=== PATIENT | male | born 1985 | race Caucasian/White ===

== ENCOUNTER 2023-10-04 08:27 | Outpatient (AMB) | payer OTHER, SELFPAY ==
--- NOTE | 2023-10-04 08:30 | A.OFFVIS_ITS ---
Intake VS Expanded 10/04/23 08:32 10/04/23 08:43 Height 6 ft 1 in 6 ft 1 in Weight 285 lb 4.45 oz 285 lb BMI 37.6 37.6 Intake Visit Reasons: T2DM HPI Nutrition Presentation Details Pt presents for MNT for T2DM with hyperglycemia. The Pt was referred by Dr. Graham. A1c at 9.0 % on 09/2023- newly dx On metformin 500 mg twice day Does not have a glucometer as of yet Pt reports working on increasing water, and reducing on sugars coffee 2-3/x/day , 12 oz cups 6:30 B: 1 egg, 1 slice of [place], 1 slic ed on [place] muffin creamer /sugar coffee 12 oz snack : banana 12: [place] yogurt/granola or peanut butte r sandwich or a granola bar ,water 4pm : protein/veg/starch , water evenings snacks: ice cream, or p.b sand started exercise routine, bike 10 min, light weight, 30 min elypictal , dark chocolate ETOH--- Smoking----- Food frequency fruits: 2/d dairy: 2-3 /d protein : 12 oz/d ve/xwk starches > 15 oz/d ANQ-Nqqttvu-Rh.Jeor Equation Height 6 ft 1 in Weight 285 lb Resting Metabolic Rate 2268.36 Calculated Activity Level Mild Activity Calories Needed to Maintain Weight 3119.00 Diagnosis Nutrition problem #1 food nutri know defi As related to (etiology) #1 diagnosis As evidenced by (sign/symptom) #1 abnormal lab values (A1c at 9.0% on 09/2023) Most Recent Diabetes Results: No Data to Display Assessment & Plan Assessment & Plan (1) T2DM (type 2 diabetes mellitus): Code(s): E11.9 - Type 2 diabetes mellitus without complications Plan: Wt: 129 Kg ( 09/2023 ) Est kcal needs as per MSJ: 3100 (40% carb, 30% protein/fat) Est fluid needs as per 25-30 ml/d: 3900 Est prot per day as per 1 g/kg bw: 129 Recommend fiber intake : 8-10 g per day and gradually increase to 25-28 g per day for women and 35-38 g for men or as tolerated Recommend sodium intake per day : less than 2000 mg Educated patient on: ( R = reviewed V = verbalizes understanding N/R = needs review N/A = not applicable * Food sources of carbohydrate, adequate serving sizes and its role in various health conditions: R * Differences between complex carbohydrates a simple carbohydrates, role of fiber in diet: R * Lean protein sources of foods: R * Differences between types of fats and role in diet (mono on saturated fat fatty acids, saturated fatty acids, trans fats): N/R * Food sources of sodium in salt and healthy modifications for heart health in kidney health: N/R * Vitamins and minerals: N/R * Healthy plate method concept: R * Physical activity: Benefits a precaution: R * Hypoglycemia protocol (rule of 15): N/R * Dietary prevention of Hyperglycemia: R Patient Instructions: Work on reducing total carb at meal to less than 75 g following healthy plate method Limit snacks, if needing a snack limit to 2-3 per day reducing on carbs to 0- 20 g carb See meal ideas a s reference Keep hydrated by having water with meals, practice mindful eating Coding Level of Care Code Nutr Indiv Intake (29635) Diagnoses T2DM (type 2 diabetes mellitus) E11.9 Time Spent (min) 35
[2023-10-04 08:32] VITALS: BMI 37.6
[2023-10-04 08:43] VITALS: BMI 37.6
== END 2023-10-04 09:16 | disposition home or self-care (01) ==
PROVIDERS: PCP Internal Medicine; Visit Provider Dietitian, Registered
DX: E11.9 Type 2 diabetes mellitus without complications (principal)

== ENCOUNTER → 2023-10-04 08:27 | Outpatient (BNVA) | payer OTHER, SELFPAY | PROVIDERS: PCP Internal Medicine; Visit Provider Dietitian, Registered | DX: E11.9 Type 2 diabetes mellitus without complications (principal); Z71.3 Dietary counseling and surveillance | CPT/HCPCS: 97802 ==

== ENCOUNTER 2024-01-11 08:24 | Outpatient (AMB) | payer OTHER, SELFPAY ==
[2024-01-11 08:33] VITALS: BMI 38.2
--- NOTE | 2024-01-11 08:33 | A.OFFVIS_ITS ---
VS Expanded 01/11/24 08:33 Height 6 ft 1 in Weight 289 lb 3.944 oz BMI 38.2 Intake Visit Reasons: T2DM Nutrition Presentation Details: Pt presents for MNT f/u for T2DM Pt reports having FBG level in the 100s and gradually working on weight loss. No weight loss this time r/t to vacation Working on an exercise routine, goal 1- 3 times a week for 1 hr Choosing fiber rich foods (whole grains/vegetables/salads) Reading food labels, serving sizes/carbs/prot fluid: water, diluted juices 36 oz - 64 oz /day water wt: 308 lbs last yr BS Monitoring Most Recent Diabetes Results: No Data to Display Assessment & Plan Assessment & Plan (1) T2DM (type 2 diabetes mellitus): Code(s): E11.9 - Type 2 diabetes mellitus without complications Category: Medical Plan: Wt: 129 Kg ( 09/2023 ), 131kg() Est kcal needs as per MSJ: 3100 (40% carb, 30% protein/fat) Est fluid needs as per 25-30 ml/d: 3900 Est prot per day as per 1 g/kg bw: 129 Recommend fiber intake : 8-10 g per day and gradually increase to 25-28 g per day for women and 35-38 g for men or as tolerated Recommend sodium intake per day : less than 2000 mg Educated patient on: ( R = reviewed V = verbalizes understanding N/R = needs review N/A = not applicable * Food sources of carbohydrate, adequate serving sizes and its role in various health conditions: R * Differences between complex carbohydrates a simple carbohydrates, role of fiber in diet: R * Lean protein sources of foods: R * Differences between types of fats and role in diet (mono on saturated fat fatty acids, saturated fatty acids, trans fats): R * Food sources of sodium in salt and healthy modifications for heart health in kidney health: N/R * Vitamins and minerals: N/R * Healthy plate method concept: R * Physical activity: Benefits a precaution: R * Hypoglycemia protocol (rule of 15): N/R * Dietary prevention of Hyperglycemia: R Patient Instructions: Work on reducing on saturated fats (amounts of [place], sausages/kielbasa, see list of sat'd fats and Monounsaturated fats) Have a snack replacement- see list of options Coding Level of Care Code Nutr Indiv Subseq (37596) Diagnoses T2DM (type 2 diabetes mellitus) E11.9 Time Spent (min) 30
== END 2024-01-11 09:16 | disposition home or self-care (01) ==
PROVIDERS: PCP Internal Medicine; Visit Provider Dietitian, Registered
DX: E11.9 Type 2 diabetes mellitus without complications (principal)

== ENCOUNTER → 2024-01-11 08:24 | Outpatient (BNVA) | payer OTHER, SELFPAY | PROVIDERS: PCP Internal Medicine; Visit Provider Dietitian, Registered | DX: E11.9 Type 2 diabetes mellitus without complications (principal); Z71.3 Dietary counseling and surveillance | CPT/HCPCS: 97803 ==